=== PATIENT | female | born 1965 | race Caucasian/White ===

== ENCOUNTER → 2021-03-02 11:13 | Outpatient (CLI) | payer SELFPAY ==
--- NOTE | ~2021-03-02 | CT_ITS ---
EXAMINATION: CT abdomen w con EXAM DATE: 03/02/2021 11:42 INDICATION: Right-sided mid abdominal pain, right flank pain. Abdominal swelling. History of lymphoma 1988. TECHNIQUE: Spiral CT of the abdomen was performed following intravenous injection of 100 mL Omnipaque 350. Axial, coronal and sagittal images were reviewed. The dose-length product (DLP) for this exam ination was 438.56 mGy-cm. The exposure was tailored according to patient size (auto mA exposure con trol), and iterative reconstruction (ASIR) was used as additional dose reduction technique. There is no prior study for comparison. FINDINGS: There is hepatic steatosis without suspicious focal lesion identified. Spleen, adrenal glan ds, pancreas are unremarkable. Gallbladder is unremarkable. No biliary obstruction. Portal and spl enic veins are patent. Kidneys enhance symmetrically. There is no hydronephrosis. There is no re troperitoneal lymphadenopathy. Probable appendectomy. The stomach and small bowel are unremarkable. There is expected amount of co lonic stool. No free intraperitoneal gas. The heart is normal in size. There are no pericardial or pleural effusions. There is flat right lower lobe 5 x 8 mm opacity, but only 2 mm in thickness. M ost likely benign postinfectious residua. The bones are unremarkable. IMPRESSION: 1. No acute intra-abdominal findings. 2. Right lower lobe opacity likely postinfectious; recommend 6 month follow-up chest CT without cont rast. 3. Hepatic steatosis. Reviewed, dictated and finalized at location A. IMPRESSION: 1. No acute intra-abdominal findings. 2. Right lower lobe opacity likely postinfectious; recommend 6 month follow-up chest CT without contrast. 3. Hepatic steatosis.
== END ==
DX: R19.03 Right lower quadrant abdominal swelling, mass and lump (principal); R91.8 Other nonspecific abnormal finding of lung field; K76.0 Fatty (change of) liver, not elsewhere classified
CPT/HCPCS: 74160; Q9967

== ENCOUNTER → 2021-10-03 16:08 | Outpatient (CLI) | payer SELFPAY ==
--- NOTE | ~2021-10-03 | MR_ITS ---
EXAMINATION: MR knee LT wo con DATE: 10/03/2021 17:12 INDICATION: Left knee pain. TECHNIQUE: Magnetic resonance imaging (MRI) of the left knee was performed without intravenous contra st. Sequences included axial PD-weighted FS FSE, coronal PD-weighted FSE and PD-weighted FS FSE, sagi ttal PD-weighted FSE, and sagittal T2-weighted FS FSE. COMPARISON: None. FINDINGS: Medial compartment: There is an undersurface horizontal tear of posterior horn of medial meniscus. There is shallow parti al-thickness cartilage loss of tibial condyle. There is deep partial thickness cartilage loss of femo ral condyle involving the posterior articular surface. Tiny osteophytes are noted. Lateral compartment: Lateral meniscus is normal. Lateral compartment cartilage is normal. There are tiny osteophytes. Patellofemoral compartment: There is deep partial thickness cartilage loss of patellar medial facet, median ridge, and medial asp ect of lateral facet. There is shallow partial-thickness cartilage loss of medial trochlea. Ligaments and tendons: The anterior and posterior cruciate ligaments are normal. Medial collateral ligament is normal. There are changes of prior sprain of fibular collateral ligament characterized by thickening and increased signal intensity proximally. There is mild popliteus tendinopathy. There is mild patellar tendinopat hy. Fluid: There is a moderate-sized knee joint effusion. There is trace fluid in a Arita's cyst. There is mild prepatellar and superficial infrapatellar bursitis. IMPRESSION: 1. Moderate chondrosis of medial and patellofemoral compartments. 2. Tear of medial meniscus. 3. Moderate-sized knee joint effusion. Reviewed, dictated and finalized at location A. [employer] REPORTER
== END ==
PROVIDERS: PCP Family Medicine
DX: M25.562 Pain in left knee (principal); M22.2X2 Patellofemoral disorders, left knee; S83.242A Other tear of medial meniscus, current injury, left knee, initial encounter; M25.462 Effusion, left knee
CPT/HCPCS: 73721

== ENCOUNTER → 2021-12-07 09:36 | Outpatient (CLI) | payer SELFPAY ==
--- NOTE | ~2021-12-07 | CT_ITS ---
EXAMINATION: CT diagnostic chest wo con EXAM DATE: 12/07/2021 10:01 INDICATION: Other nonspecific abnormal finding of lung field. Six-month follow-up right lower lobe no dule. TECHNIQUE: Spiral CT of the chest without contrast. Axial, coronal and sagittal images of the chest were reviewed. Coronal maximum intensity pixel images of chest reviewed. The dose-length product ( DLP) for this examination was 259.46 mGy-cm. The exposure was tailored according to patient size (au to mA exposure control), and iterative reconstruction (ASIR) was used as additional dose reduction te chnique. Correlation is made to CT abdomen pelvis 03/02/2021. FINDINGS: The nodule in question on prior abdomen pelvis CT in the right lower lobe has resolved. Th ere are no suspicious pulmonary nodules. There are no pleural or pericardial effusions. Tracheobro nchial tree is patent. There is no mediastinal, hilar or axillary lymphadenopathy. There is no pn eumothorax. Heart normal in size. No evidence of coronary arterial calcification. There is hepat ic steatosis. There is mild thoracic spondylosis without osteoblastic or osteolytic lesions identifi ed. IMPRESSION: 1. Clear lungs. 2. Hepatic steatosis. Reviewed, dictated and finalized at location A. UME MISTRESS
== END ==
DX: R91.8 Other nonspecific abnormal finding of lung field (principal); K76.0 Fatty (change of) liver, not elsewhere classified
CPT/HCPCS: 71250

== ENCOUNTER → 2023-01-03 16:42 | Outpatient (CLI) | payer SELFPAY ==
--- NOTE | ~2023-01-03 | MM_ITS ---
EXAMINATION: MM screening jim BI w cayetano HISTORY: Screening mammogram TECHNIQUE: Craniocaudal and mediolateral oblique 3-D tomosynthesis images were obtained and synthetic 2-D images were generated. CAD analysis was submitted and interpreted. COMPARISON: 09/15/2010 bilateral screening mammogram BREAST PARENCHYMAL COMPOSITION: There are scattered areas of fibroglandular density. FINDINGS: New approximately 3.4 mm low-density circumscribed opacity is noted in the posterior upper inner left breast since 09/15/2010. Diagnostic left mammogram and left breast ultrasound examination are recommended. Otherwise there is no evidence of suspicious mass, calcification, or architectural distortion to sugg est malignancy in either breast. There has been no other suspicious interval change. IMPRESSION: 1. New circumscribed 3.4 mm low-density opacity in posterior mid to upper inner left breast 2. Diagnostic left mammogram and left breast ultrasound examination are recommended BI-RADS Category 0: Incomplete: Needs additional imaging evaluation. Reviewed, dictated and finalized at location A. SETTER SUPERVISOR IMPRESSION: 1. New circumscribed 3.4 mm low-density opacity in posterior mid to upper inner left breast 2. Diagnostic left mammogram and left breast ultrasound examination are recomme nded BI-RADS Category 0: Incomplete: Needs additional imaging evaluation.
== END ==
PROVIDERS: PCP Family Medicine; Visit Provider Family Medicine
DX: Z12.31 Encounter for screening mammogram for malignant neoplasm of breast (principal); R92.8 Other abnormal and inconclusive findings on diagnostic imaging of breast
CPT/HCPCS: 77063; 77067

== ENCOUNTER → 2023-01-23 08:24 | Outpatient (CLI) | payer SELFPAY ==
--- NOTE | ~2023-01-23 | MMUS_ITS ---
EXAMINATION: MM diagnostic jim LT w cayetano, US breast LT limited HISTORY: New circumscribed 2.4 mm low-density opacity reported in posterior mid to upper inner left b reast on January 03, 2023 screening mammogram examination TECHNIQUE: Additional 3-D tomosynthesis images of the left breast were performed and synthetic 2-D im ages were generated. CAD analysis was submitted and interpreted. High resolution targeted posterior u pper inner quadrant left breast ultrasound was performed. COMPARISON: January 03, 2023 bilateral screening mammogram FINDINGS: MAMMOGRAPHIC FINDINGS: Approximately 2.6 x 3.5 x 4 mm circumscribed opacity is noted posteriorly in the inner aspect of the upper inner quadrant of the left breast. ULTRASOUND: 11:00 10 cm from nipple: Parallel circumscribed 2.8 x 3.9 x 3.0 mm hypoechoic area is noted without i nternal vascularity or posterior shadowing. Six-month follow-up diagnostic left mammogram and targete d left breast ultrasound examination are recommended. IMPRESSION: 1. Approximately 4 mm circumscribed opacity in posterior upper inner quadrant of left breast at 11:00 10 cm from nipple 2. 6 month follow-up diagnostic left mammogram and left targeted breast ultrasound examination are re commended BI-RADS category 3, probably benign finding. Reviewed, dictated and finalized at location A. D [employer] SUPERVISOR IMPRESSION: 1. Approximately 4 mm circumscribed opacity in posterior upper inner quadrant o f left breast at 11:00 10 cm from nipple 2. 6 month follow-up diagnostic left mammogram and left targeted breast ultraso und examination are recommended BI-RADS category 3, probably benign finding.
== END ==
PROVIDERS: PCP Family Medicine; Visit Provider Family Medicine
DX: R92.8 Other abnormal and inconclusive findings on diagnostic imaging of breast (principal)
CPT/HCPCS: 76642; 77061; 77065; G0279

== ENCOUNTER → 2023-06-30 08:23 | Outpatient (CLI) | payer SELFPAY ==
--- NOTE | ~2023-06-30 | MMUS_ITS ---
EXAMINATION: MM diagnostic jim LT w cayetano, US breast LT limited HISTORY: Six-month follow-up for probably benign left breast mass TECHNIQUE: Craniocaudal, mediolateral, and mediolateral oblique 3-D tomosynthesis images of the left breast were performed and synthetic 2-D images were generated. CAD analysis was submitted and interpr eted. High resolution limited left breast ultrasound was performed. COMPARISON: 01/23/2023, 01/03/2023, 04/18/2020 BREAST PARENCHYMAL COMPOSITION: There are scattered areas of fibroglandular density. FINDINGS: MAMMOGRAPHIC FINDINGS: No suspicious mass, calcification, or architectural distortion are identified to suggest malignancy. The previously described left breast asymmetry is no longer identified. ULTRASOUND: There is no evidence of focal abnormal solid or cystic mass in the vicinity of the previous sonograph ically detected mass of the upper inner left breast. IMPRESSION: 1. No mammographic or sonographic evidence of malignancy. 2. Recommend routine screening mammography, due in six months. BI-RADS Category 1: Negative Reviewed, dictated and finalized at location A. IMPRESSION: 1. No mammographic or sonographic evidence of malignancy. 2. Recommend routine screening mammography, due in six months. BI-RADS Category 1: Negative
== END ==
DX: N64.4 Mastodynia (principal)
CPT/HCPCS: 76642; 77061; 77065; G0279

== ENCOUNTER 2024-02-27 13:55 | Outpatient (CLI) | payer SELFPAY ==
--- NOTE | ~2024-02-27 | CT_ITS ---
Clinical Indication: Chest pain CT Scan of the Chest with Contrast: Technique: Contiguous sections were acquired throughout the chest after intravenous administration of 75 cc of Omnipaque 350. Dose reduction technique was used on this scan by utilizing automated exposu re control and iterative reconstruction technique. The dose-length product (DLP) was 286.13 mGy-cm. COMPARISON: 12/07/2021 Findings: There is no evidence of any significant mediastinal, hilar or axillary lymphadenopathy. There is no f illing defect in the pulmonary arterial tree to suggest pulmonary embolus. There is no evidence of ao rtic dissection or aneurysm. There is no evidence of pleural or pericardial effusion. The lungs are clear. No pulmonary nodules or infiltrates are noted. Images through the upper abdomen reveal diffuse hepatic steatosis. Impression: Clear lungs. Hepatic steatosis. Reviewed, dictated and finalized at [facility]. Impression: Clear lungs. Hepatic steatosis.
== END 2024-02-27 13:56 ==
DX: R07.89 Other chest pain (principal); K76.0 Fatty (change of) liver, not elsewhere classified
CPT/HCPCS: 71260; Q9967

== ENCOUNTER 2024-03-27 08:21 | Outpatient (CLI) | payer SELFPAY ==
--- NOTE | ~2024-03-27 | MM_ITS ---
EXAMINATION: MM screening jim BI w cayetano HISTORY: .. TECHNIQUE: Craniocaudal and mediolateral oblique 3-D tomosynthesis images were obtained and synthetic 2-D images were generated. CAD analysis was submitted and interpreted. COMPARISON: 06/30/2023 diagnostic left mammogram and Limited left breast ultrasound 01/23/2023 diagnostic left mammogram and Limited left breast ultrasound 01/03/2023, 04/18/2020 bilateral screening mammogram examinations BREAST PARENCHYMAL COMPOSITION: There are scattered areas of fibroglandular density. FINDINGS: There is no evidence of suspicious mass, calcification, or architectural distortion to sugg est malignancy in either breast. There has been no suspicious interval change. IMPRESSION: 1. No mammographic evidence of malignancy. 2. Recommend routine screening mammography in one year. BI-RADS Category 1: Negative Reviewed, dictated and finalized at location A.
== END 2024-03-27 08:22 ==
PROVIDERS: PCP Family Medicine; Visit Provider Family Medicine
DX: Z12.31 Encounter for screening mammogram for malignant neoplasm of breast (principal)
CPT/HCPCS: 77063; 77067

== ENCOUNTER 2024-11-01 15:46 | Outpatient (CLI) | payer SELFPAY ==
--- NOTE | ~2024-11-01 | MR_ITS ---
MRI of the right knee Clinical history: Internal derangement Technique: Coronal proton density and proton density-weighted images, sagittal proton-density and T2 fat-sat images, and axial proton-density fat-saturated images were acquired. Findings: Anterior and posterior cruciate ligaments are intact. Medial collateral ligament and the la teral collateral ligament complex are intact. Popliteus tendon is intact. Radial tear at the posterior root of the medial meniscus is present. Lateral meniscus is intact. There is grade IV chondromalacia at the patellar apex extending to the medial facet. There is focal m ild chondromalacia the femoral trochlea. There is extensive moderate to high-grade chondral malacia t he medial femoral condyle. Articular cartilage in the lateral compartment is well preserved. Extensor mechanism is intact. Moderate joint effusion present. No Arita's cyst. Impression: Radial tear at the posterior root of the medial meniscus. Chondromalacia of the medial femoral condyle and patella in particular, as detailed above. Moderate joint effusion. Reviewed, dictated and finalized at location . RONMENTAL SERVICES SPECIALIST Impression: Radial tear at the posterior root of the medial meniscus. 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 Moderate joint effusion.
== END 2024-11-01 15:47 | disposition home or self-care (01) ==
PROVIDERS: PCP Family Medicine; Visit Provider Physician Assistant
DX: S83.241A Other tear of medial meniscus, current injury, right knee, initial encounter (principal); X58.XXXA Exposure to other specified factors, initial encounter; M94.261 Chondromalacia, right knee; M25.461 Effusion, right knee
CPT/HCPCS: 73721

== ENCOUNTER 2025-05-13 10:50 | Outpatient (CLI) | payer SELFPAY ==
--- NOTE | ~2025-05-13 | MM_ITS ---
EXAMINATION: MM screening jim BI w cayetano HISTORY: Screening TECHNIQUE: Craniocaudal and mediolateral oblique 3-D tomosynthesis images were obtained and synthetic 2-D images were generated. CAD analysis was submitted and interpreted. COMPARISON: Comparison to multiple prior studies sequentially, with oldest reviewed study dated 04/14. BREAST PARENCHYMAL COMPOSITION: Not dense: There are scattered areas of fibroglandular density. FINDINGS: The right breast is stable without evidence for malignancy. There is a developing mass in t he upper inner quadrant of the left breast, posterior third. IMPRESSION: 1. Developing left breast mass upper inner quadrant, posterior third. 2. Additional mammographic views and possible breast ultrasound are recommended. BI-RADS Category 0: Incomplete: Needs additional imaging evaluation. Reviewed, dictated and finalized at location A. IMPRESSION: 1. Developing left breast mass upper inner quadrant, posterior third. 2. Additional mammographic views and possible breast ultrasound are recommended . BI-RADS Category 0: Incomplete: Needs additional imaging evaluation.
== END 2025-05-13 10:51 | disposition home or self-care (01) ==
LOC: MICIMG 10:51
PROVIDERS: PCP Family Medicine; Visit Provider Family Medicine
DX: Z12.31 Encounter for screening mammogram for malignant neoplasm of breast (principal); R92.8 Other abnormal and inconclusive findings on diagnostic imaging of breast
CPT/HCPCS: 77063; 77067

== ENCOUNTER 2025-05-23 08:26 | Outpatient (CLI) | payer SELFPAY ==
--- NOTE | ~2025-05-23 | MMUS_ITS ---
EXAMINATION: MM diagnostic jim LT w cayetano, US breast LT limited HISTORY: Left breast mass TECHNIQUE: Additional 3-D tomosynthesis images of the left breast were performed and synthetic 2-D im ages were generated. CAD analysis was submitted and interpreted. High resolution limited left breast ultrasound was performed. COMPARISON: 05/13/2025, 03/27/2024, 06/30/2023, 01/23/2023, 01/03/2023, 04/18/2020 BREAST PARENCHYMAL COMPOSITION:Not Dense. There are scattered areas of fibroglandular density. FINDINGS: MAMMOGRAPHIC FINDINGS: Spot compression views confirm a persistent low-density circumscribed 4 mm mass at the posterior left breast, slightly upper, slightly outer in position. ULTRASOUND: At the 11:00 position left breast, 9 cm from nipple, there is a 3 mm hypoechoic mass, probably a smal l cyst. IMPRESSION: 3 mm probable cyst at the posterior left breast, as above. Additionally, this lesion is probably pre sent on prior mammogram from 2022. Therefore this is most consistent with a benign finding. BI-RADS Category 2: Benign finding(s). Reviewed, dictated and finalized at location . IMPRESSION: 3 mm probable cyst at the posterior left breast, as above. Additionally, this lesion is probably present on prior mammogram from 2022. Therefore this is most consistent with a benign finding. BI-RADS Category 2: Benign finding(s).
== END 2025-05-23 08:27 | disposition home or self-care (01) ==
PROVIDERS: PCP Family Medicine; Visit Provider Family Medicine
DX: R92.8 Other abnormal and inconclusive findings on diagnostic imaging of breast (principal); N60.02 Solitary cyst of left breast
CPT/HCPCS: 76642; 77061; 77065; G0279

== ENCOUNTER 2025-11-22 08:05 | Outpatient (CLI) | payer SELFPAY ==
--- NOTE | ~2025-11-22 | MMUS_ITS ---
EXAMINATION: MM diagnostic jim LT w cayetnao, US breast LT limited HISTORY: Follow-up TECHNIQUE: Craniocaudal and mediolateral oblique 3-D tomosynthesis images were obtained and synthetic 2-D images were generated. CAD analysis was submitted and interpreted. Grayscale sonography over the area(s) of interest with color Doppler if there is a finding. COMPARISON: May 23 and May 13. BREAST PARENCHYMAL COMPOSITION: Not Dense: There are scattered areas of fibroglandular tissue MAMMOGRAM FINDINGS: There is a small mass in the posterior medial position, which has possibly increased in size somewhat. It is minimally irregular in shape. There are no suspicious calcifications. No unexplained architectural distortion is seen. There are no skin or nipple abnormalities identified. There is no adenopathy seen on the images submitted. ULTRASOUND FINDINGS: The 11:00 position again demonstrates the presence of a hypoechoic mass, deep in location at 11:00, near the chest wall. Sonography through disposition demonstrates a hypoechoic mass with a mildly heterogeneous echotexture. Margins are at least ill-defined. In some areas there is question of angular margins. The maximum dimension is 6 mm, previously 3 mm. Sonography through the left axilla demonstrates benign-appearing lymph nodes as well as one lymph node with mild mild cortical thickening up to 4 mm. IMPRESSION: Tiny mass in the left breast for which ultrasound-guided core biopsy is recommended. At that time, sampling should also be performed on the questionable axillary lymph node. BI-RADS 4-suspicious abnormality. Tissue diagnosis is recommended. Reviewed, dictated and finalized at location A. ICIAN NEONATOLOGY IMPRESSION: Tiny mass in the left breast for which ultrasound-guided core biopsy is recomme nded. At that time, sampling should also be performed on the questionable axill rodolfo lymph node. BI-RADS 4-suspicious abnormality. Tissue diagnosis is recommended.
== END 2025-11-22 08:06 | disposition home or self-care (01) ==
PROVIDERS: PCP Family Medicine; Visit Provider Family Medicine
DX: R92.8 Other abnormal and inconclusive findings on diagnostic imaging of breast (principal); N63.22 Unspecified lump in the left breast, upper inner quadrant
CPT/HCPCS: 76642; 77061; 77065; G0279